=== PATIENT | female | born 1975 | race Caucasian/White ===

== ENCOUNTER 2018-06-13 10:56 | Outpatient (CLI) | payer OTHER ==
[2014-10-24 21:47] VITALS: BP 140/79
[2018-06-13 12:34] LABS: eGFR (African) > 60; eGFR (Non-African) > 60
== END 2018-06-13 14:07 ==
LOC: LAB 10:56
PROVIDERS: ATTEND Physician Assistant
DX: R63.5 Abnormal weight gain (principal); Z13.6 Encounter for screening for cardiovascular disorders; K21.9 Gastro-esophageal reflux disease without esophagitis
CPT/HCPCS: 36415; 80053; 80061; 84439; 84443; 84481

== ENCOUNTER 2018-07-15 09:20 | Outpatient (CLI) | payer OTHER ==
[2014-10-24 21:47] VITALS: BP 140/79
--- NOTE | 2018-07-15 10:17 | Diagnostic Imaging Report ---
ANGELA ZAVALA [facility] [address] [facility].[address] [address] Report Submission Date: Jul 15, 2018 10:13:22 AM CDT Patient Study Name: JUAN SAEED Date: Jul 15, 2018 9:25:29 AM CDT Modality Type: DX Gender: F Description: SPINE : 75 Institution: [facility] Physician: ANGELA ZAVALA Examination: Cervical spine History: L arm numbness/neck pain (Hx) Comparison exams: None available Findings: 3 views of the cervical spine demonstrate normal height and alignment. No anterior compression. No abnormal listhesis. Scattered osteophytes. No odontoid abnormality. No prevertebral abnormality Impression: Mild degenerative spurring. No acute appearing osseous abnormality. If patient is experiencing neurologic symptoms, consider obtaining MRI to further evaluate. Electronically signed on Jul 15, 2018 10:13:22 AM CDT by: Cleve MAJANO
== END 2018-07-15 09:21 ==
LOC: RAD 09:20
PROVIDERS: ATTEND Family Medicine
DX: R20.0 Anesthesia of skin (principal)
CPT/HCPCS: 72040

== ENCOUNTER 2018-08-15 15:28 | Outpatient (CLI) | payer OTHER ==
[2014-10-24 21:47] VITALS: BP 140/79
== END 2018-08-15 15:30 ==
LOC: LABRHC 15:28
PROVIDERS: ATTEND Family Medicine
DX: Z12.4 Encounter for screening for malignant neoplasm of cervix (principal)
CPT/HCPCS: 88148; G0143

== ENCOUNTER 2019-12-08 15:07 | Emergency (ER) | payer OTHER ==
[2019-12-08] MEDS ORDERED: ONDANSETRON HCL/PF 4 MG/ 2ML VIAL IVP ONE (15:40)
[2019-12-08] MEDS ORDERED: 0.9 % SODIUM CHLORIDE 1,000 ML IV ONE (15:40)
--- NOTE | 2019-12-08 15:52 | ED Physician Documentation ---
Nausea/Vomiting/Diarrhea - HISTORIAN Historian: patient - HPI Stated Complaint: CC, N/V Chief Complaint: Nausea,Vomiting,Diarrhea Additional Information: 44 year old female presents with c/o watery diarrhea that started 2 days ago; approx 6 episodes yesterday; vomiting also started a couple of days ago; last emesis at 00:30 today. She c/o cough and congestion. Patient states "I feel like I am dehydrated"- states that she cant keep fluids down. Onset: days ago Duration: constant Timing: sudden onset Context: other [place] ) Severity: moderate - Associated Symptoms Vomiting: frequent Diarrhea: mucous Abdominal Pain: none - ROS CONST: none CVS/RESP: cough, non-productive cough GI/: none EYES/ENT: none MS/SKIN/LYMPH: denies: rash NEURO/PSYCH: none - PAST HX Past History: other (depression, GERD) Surgeries/Procedures: Immunizations: UTD Allergies/Adverse Reactions: Allergies Allergy/AdvReac Type Severity Reaction Status Date / Time No Known Allergies Allergy Verified 12/08/19 15:25 Home Medications: Ambulatory Orders Medication Instructions Recorded Escitalopram Oxalate [Lexapro] 20 mg PO DAILY 12/08/19 Ondansetron HCl Rapdis [Zofran Odt] 4 mg PO Q6H PRN #15 tab 12/08/19 - SOCIAL HX Smoking History: less than 1 pack/day Alcohol Use: none Drug Use: none - FAMILY HX Family History: none - VITAL SIGNS Vital Signs: Vital Signs Temp Pulse Resp BP Pulse Ox 98.9 F 68 19 132/76 98 12/08/19 17:10 12/08/19 17:10 12/08/19 17:10 12/08/19 17:10 12/08/19 17:10 - REVIEWED ASSESSMENTS Nursing Assessment Reviewed: Yes Vitals Reviewed: Yes Progress - EKG/XRAY/CT EKG: NSR ED Results Lab/Radiology - Radiology Radiology Impressions: Examination: PA and lateral chest. History: Evaluate lung robins. Comparison exam: None provided. Findings: PA and lateral views of the chest demonstrates a normal cardiac and mediastinal silhouette. No focal infiltrate. Left lung base scarring. No blunting of the costophrenic margins. Osseous structures are appropriate for age. Impression: No acute appearing pulmonary process. Electronically signed on Dec 08, 2019 4:26:41 PM ASH COLLECTOR by: Cleve Khan - Orders Orders: ED Orders Category Date Time Status Place IV Lock 1T Care 12/08/19 15:40 Active CHEST 2VIEW [RAD] Stat Exams 12/08/19 Completed CBC/PLATELET/DIFF Routine Lab 12/08/19 15:50 Received CMP Routine Lab 12/08/19 15:50 Received 0.9 % Sodium Chloride [Normal Saline] 1,000 ml Med 12/08/19 15:40 Discontinued IV NOW Ondansetron HCl/Pf [Zofran] Med 12/08/19 15:40 Discontinued 4 mg IVP NOW ONE Nausea Physical Exam - EXAM General Appearance: no acute distress, alert EENT: eye inspection normal, ENT inspection normal, pharynx normal, MAREK, TM's nml Neck: normal inspection Respiratory: breath sounds normal CVS: heart sounds normal Abdomen: non-tender Back: painless ROM Skin: warm/dry, normal color Extremities: non-tender, normal range of motion Neuro/Psych: oriented X3, CN's nml as tested, motor nml, sensation nml, mood/affect nml, cognition normal Discharge Clincal Impression: Nausea vomiting and diarrhea Prescriptions: Ondansetron HCl Rapdis [Zofran Odt] 4 mg PO Q6H PRN #15 tab PRN Reason: Nausea and vomiting Referrals: Maris Anderson MD [Primary Care Provider] - 2 Days Additional Instructions: 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
--- NOTE | 2019-12-08 16:31 | Diagnostic Imaging Report ---
PATIENT MR#: [id number] PATIENT PATIENT NAME: JUAN SAEED DATE OF : 1975 REFERRING PHYSICIAN: Ella Proctor EXAM DATE: 12/08/2019 ACCESSION NUMBER: [id number] EXAM DESCRIPTION: CHEST 2VIEW Examination: PA and lateral chest. History: Evaluate lung robins. Comparison exam: None provided. Findings: PA and lateral views of the chest demonstrates a normal cardiac and mediastinal silhouette. No focal infiltrate. Left lung base scarring. No blunting of the costophrenic margins. Osseous structures a re appropriate for age. Impression: No acute appearing pulmonary process. Read by: Dr. Cleve Khan Transcribed by: Transcribed Date: Electronically signed by: Dr. Cleve Khan Date signed: 12/08/2019 4:31:09 PM
[2019-12-08 17:18] VITALS: BP 132/76
== END 2019-12-08 17:10 | disposition home or self-care (01) ==
LOC: ED 15:07
DX: R11.2 Nausea with vomiting, unspecified (principal); R19.7 Diarrhea, unspecified
CPT/HCPCS: 71046; 80053; 85025; 96361; 96374; 99284; J2405; J7030; S1016